=== PATIENT | male | born 1950 | race Caucasian/White ===

== ENCOUNTER 2025-04-11 14:37 | Emergency (ER) | payer OTHER, SELFPAY ==
[2025-04-11 14:43] VITALS: BP 160/100
[2025-04-11 15:14] LABS: Hematocrit 48.7 % (39.0-52.0); Hemoglobin 17.3 g/dL (13.0-18.0); Mean Corp Hgb Conc. 35.5 g/dL (33.0-37.0); Mean Corpuscular Volume 92.1 fL (80.0-94.0); Nucleated Red Blood Cells % 0 % (-); Platelet Count 195 10^3/uL (130-400); Red Cell Dist. Width 12.3 % (11.5-14.5)
[2025-04-11 15:27] LABS: Blood Urea Nitrogen 14 mg/dl (9-20); Calcium 9.5 mg/dl (8.4-10.2); Carbon Dioxide 30 mmol/L (22-30); Chloride 103 mmol/L (98-107); Glucose 162 mg/dl (70-99); Sodium 138 mmol/L (135-145); eGFR > 60.00
--- NOTE | 2025-04-11 19:07 | ED.GENMED ---
History of Present Illness
General
Chief Complaint: Blood Pressure Problem
Source: patient and significant other
Time Seen by Provider: 04/11/25 18:52
History of Present Illness
History of Present Illness:
This patient is a 75-year-old male who presents emergency department with complaints of elevated blood pressure. He went to bed feeling his usual self. He awoke at approximately 8 AM and as he sat up he started to feel dizzy. He laid down and it
went away. Then, later in the morning at around 11 AM while walking to the bathroom he says he started to feel unwell described as dizzy, described as feeling like he might pass out. He checked his blood pressure at that time and it was 159/91.
His significant other gave him aspirin which he took. Then, around 1 PM, he rechecked his blood pressure and it was 195/109 which prompted their visit here. He now denies any dizziness. He denies associated numbness, tingling, clumsiness, change
in vision, double vision, change in speech, focal weakness, difficulty ambulating, palpitations, chest pain or pressure, dyspnea, neck pain, back pain. He did have a 'mild' headache today that would come and go, now not present. In regards to the
dizziness, he did describe it as feeling like he might pass out, but also describes it as slightly spinning as well. He denies tinnitus or recent URI.
Past History
Past History
ED Past Medical History: Other (Prediabetes, hypercholesterolemia, kidney stones, diverticulitis)
ED Past Surgical History: Orthopedic
Social History
Tobacco: Former smoker
Alcohol: Former
Drug: None and Other
Employment: Retired
Family History
Family History: Other
Phy Exam
Physical Exam
Physical Exam:
GENERAL: Alert , in no apparent distress
EYE: pupils equal and reactive, no photophobia, EOMI, no nystagmus
NECK: Supple, no significant adenopath, no bruits y.
ENT: o/p clr, mmm.
CARDIAC: Regular rate and rhythm .
LUNGS: Clear breath sounds bilaterally, no acute respiratory distress, no wheezes/rales/rhonchi
ABDOMEN: Soft, without focal tenderness, no r/g, no cvat
NEUROLOGICAL: Alert and oriented, no focal neuro deficits, normal ambulation, kunfys-[id number] normal, motor 5 out of 5, sensory intact, cranial nerves II through XII intact
SKIN: Warm and dry, skin intact.
MUSCULOSKELETAL: No edema, well perfused.
PSYCH: Normal and appropriate interaction.
Course
Orders/Labs/Results
Orders:
Orders
04/11/25 14:47
Electrocardiogram (*1) Urgent
Reason for Study: Hypertension, Benign
EKG- Treatment ONCE
04/11/25 15:02
Basic Metabolic Panel Urgent
Complete Blood Count/With Diff Urgent
04/11/25 19:06
CT Head W/o Iv Contrast Urgent
Comment:
Reason For Exam: mild h/a, htn
Abnormal Lab Results
04/11/25
15:02
MCH 32.7 H pg
(27.0-31.0)
Lymphocytes % 19.5 L %
(20.5-51.1)
Glucose 162 H mg/dl
(70-99)
04/11/25 15:02
04/11/25 15:02
Vital Signs
Initial and Last Documented VS:
Initial Vital Signs
Temp Pulse Resp BP Pulse Ox
98.2 F 70 16 160/100 98
04/11/25 14:43 04/11/25 14:43 04/11/25 14:43 04/11/25 14:43 04/11/25 14:43
Last Documented Vital Signs
Temp Pulse Resp BP Pulse Ox
98.2 F 66 15 178/88 96
04/11/25 14:43 04/11/25 19:23 04/11/25 19:23 04/11/25 19:23 04/11/25 19:25
*Pulse Oximetry
SaO2: 98
Oxygen Mode of Delivery: Room air
Update Note
Update Note:
Patient presents to the Emergency Department with ___elevated blood pressure, mild headache, transient dizziness
Number and Complexity of Problems Addressed at the Encounter
� Chronic conditions affecting care:
� Acute Exacerbation and/or Progression of Chronic Illness:
� Differential Diagnosis includes: But not limited to new onset hypertension, medication effects, renal artery stenosis, ACS, TIA, etc. etc.
Amount and/or Complexity of Data to be Reviewed and Analyzed
� I performed an independent evaluation of and my interpretation is:
EKG: Read by me normal sinus rhythm with first-degree block, no acute ischemia
CT:read by eduardo valdes
Xrays:
Laboratory Studies: Mild hyperglycemia but otherwise unremarkable
Other:
� Review of other/old records reveals:
� Clinical information was obtained by an independent historian: Significant other who is bedside
� Prescriptions/Medications Considered but not given:
� Further testing considered but not performed:
Risk of Complications and/or Morbidity or Mortality of Patient Management
� Social determinants of health affecting care:
� Discussion with other providers (PCP, Hospitalists, Consultants, etc):
� Escalation of care including admission/observation vs risk of discharge considered: Highly doubt patient's symptoms consistent with central vertigo, does not have nystagmus, neurological abnormalities, or other 'red flag'
findings on history or physical.
PT WILL be given copy of CT read and ECG as well as labs, he [facility], is going back tomorrow, has an appt next week. Encouraged pt to get an appt sooner, next few days, and d/w him import of f/u as well as reasons to rted. No end
organ injury, no sxs (except mild h/a) to suggest more serious concerns at this time.
ED Attending Note
-
Portions of this chart may have been created with voice recognition software.� Occasional wrong word or��sound alike� substitutions may have occurred due to the inherent limitations of voice recognition software.
Discharge Plan
Departure
Patient Disposition: Home (Routine Discharge)
Date of Disposition: 04/11/25
Time of Disposition: 20:50
Patient with high blood pressure during this ER visit?: Yes
Condition: Good
Discharge Problem:
Hypertension
Instructions: High Blood Pressure (DC), BLOOD PRESSURE
Prescriptions:
No Action
atorvastatin 20 MG tablet
20 mg PO QPM
Nexium
1 tab PO .EVERYOTHERDAY
levofloxacin 500 MG tablet
500 mg PO QPM Qty: 5 0RF
metronidazole 500 MG tablet
500 mg PO TID Qty: 17 0RF
Referrals:
[facility] [Other] - Tomorrow
Activity Restrictions/Additional Instructions:
IF YOU DEVELOP SEVERE HEADACHE, ANY NUMBNESS, CHANGE IN VISION, CHANGE IN SPEECH, RECURRENT DIZZINESS, CHEST PAIN, TROUBLE BREATHING, CHANGE IN URINATION, WEAKNESS, OR OTHER WORRISOME SIGNS, GO TO THE ER IMMEDIATELY!
Interventions
Interventions:
*Risk Screen - Suicide Last Done: 04/11/25 14:43
*General Assessment Last Done: 04/11/25 19:24
*Neglect/Abuse Screening Last Done: 04/11/25 14:43
*ED- Fall Risk Assessment Last Done: 04/11/25 19:24
*ED COVID-19 Vaccine History Last Done: 04/11/25 19:24
ED- Cardiac Assessment Last Done: 04/11/25 19:25
ED- Neurological Assessment Last Done: 04/11/25 19:25
ED- Pulmonary Assessment Last Done: 04/11/25 19:25
Discharge Date and Time
Print Language: MALTESE
[2025-04-11 19:23] VITALS: BP 178/88; BMI 31.0
--- NOTE | 2025-04-11 19:28 | PTCARENOTE ---
patient endorses dizziness starting earlier today. patient reports taking his blood pressure and noting it to be in the 190s systolic. patient reports dizziness is intermittent and is currently improved from previously. patient reports no history of
hypertension.
[2025-04-11 20:57] VITALS: BP 174/106
== END 2025-04-11 21:03 | disposition home or self-care (01) ==
LOC: EMR 14:37
PROVIDERS: Emergency Medicine; EMERGENCY PHYSICIAN Emergency Medicine
DX: R42 Dizziness and giddiness (principal); I10 Essential (primary) hypertension; E78.00 Pure hypercholesterolemia, unspecified; Z87.442 Personal history of urinary calculi; Z87.891 Personal history of nicotine dependence
CPT/HCPCS: 99284; 70450; 80048; 85025; 93005